=== PATIENT | male | born 1955 | race Native Hawaiian/Other Pacific Islander ===

== ENCOUNTER 2017-11-30 08:43 | Day surgery (SDC) | payer MEDICAID ==
[2017-11-30 09:32] VITALS: BMI 26.5
[2017-11-30] MEDS ORDERED: Lactated Ringer's 500 ML IV ONE (09:36)
[2017-11-30] MEDS ORDERED: Propofol 10 mg/ml Inj (20 ML) ONE (10:15)
[2017-11-30 11:28] VITALS: TEMP 96.8
[2017-11-30 11:55] VITALS: BP 124/77; PULSE 77; RESP 18; O2SAT 100
== END 2017-11-30 12:06 | disposition home or self-care (01) ==
LOC: H.ENDO 08:43
PROVIDERS: ATTEND Internal Medicine Gastroenterology
DX: Z12.11 Encounter for screening for malignant neoplasm of colon (principal); K64.8 Other hemorrhoids; K30 Functional dyspepsia; K31.89 Other diseases of stomach and duodenum; K44.9 Diaphragmatic hernia without obstruction or gangrene; K29.60 Other gastritis without bleeding
CPT/HCPCS: 43239; 45378; 88305; J2001; J2704; J7120